=== PATIENT | male | born 1965 | race Caucasian/White ===

== ENCOUNTER → 2019-07-12 | Outpatient (CLI) | payer OTHER | END | disposition home or self-care (01) | LOC: CFH 07:57 | PROVIDERS: ATTEND Physician Assistant Medical | DX: M62.511 Muscle wasting and atrophy, not elsewhere classified, right shoulder (principal) ==

== ENCOUNTER 2020-05-13 15:31 | Emergency (ER) | payer SELFPAY ==
[~2020-05-13] VITALS: Ht 182.9 cm; Wt 98.7 kg
--- NOTE | 2020-05-13 15:38 | NUR ---
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
--- NOTE | 2020-05-13 15:50 | NUR ---
UNABLE TO GET A TEMP DUE TO PT VOMITING IN TRIAGE
[2020-05-13] MEDS ORDERED: KETOROLAC 30 MG/1 ML ONE (16:16)
[2020-05-13] MEDS ORDERED: ONDANSETRON ODT 4 MG PO ONE (16:30)
[2020-05-13] MEDS ORDERED: KETOROLAC 30 MG/1 ML IM ONE (16:30)
--- NOTE | 2020-05-13 16:32 | NUR ---
PIV INITIATED, PT MEDICATED PER NOV. LABS DRAWN AND SENT TO LAB. UA SAMPLE COLLECTED AND WALKED TO LAB PT TO BP, CONT PULSE OX AT THIS TIME, VSS. SIG OTHER AT BEDSIDE
--- NOTE | 2020-05-13 16:49 | NUR ---
PT TO IMAGING AT THIS TIME
[2020-05-13 16:50] LABS: MICROSCOPIC AUTO
[2020-05-13 16:51] LABS: BASOPHILS # (AUTO) 0.05 x10^3/uL (0-0.1); BASOPHILS % (AUTO) 1 % (0-1); EOSINOPHILS # (AUTO) 0.13 x10^3/uL (0-0.4); EOSINOPHILS % (AUTO) 2 % (1-7); LYMPHOCYTES # (AUTO) 1.81 x10^3/uL (1-3.4); LYMPHOCYTES % (AUTO) 20 % (22-44); MD NO; MEAN CORPUSCULAR HGB CONC 32.8 g/dL (33.2-36.2); MEAN CORPUSCULAR VOLUME 97.6 fL (81-97); MEAN PLATELET VOLUME 7.5 fL (7.4-10.4); MONOCYTES # (AUTO) 0.66 x10^3/uL (0.2-0.8); MONOCYTES % (AUTO) 7 % (2-9); NEUTROPHILS # (AUTO) 6.38 x10^3/uL (1.8-6.8); NEUTROPHILS % (AUTO) 71 % (42-75); PLATELET COUNT 242 x10^3/uL (130-400); RED BLOOD COUNT 4.76 x10^6/uL (4.38-5.82); RED CELL DISTRIBUTION WIDTH 13.5 % (9.4-14.8)
[2020-05-13 16:59] VITALS: BP 115/67
--- NOTE | 2020-05-13 17:01 | NUR ---
PT BACK FROM IMAGING, STATES MUCH PAIN RELEIF FROM TORADOL. VSS AT THIS TIME, AWAITING LABS
[2020-05-13 17:02] LABS: ANION GAP 4 mmol/L (5-15); CALCIUM 8.3 mg/dL (8.5-10.1); CHLORIDE 111 mmol/L (98-107); CREATININE 1.18 mg/dL (0.7-1.3)
== END 2020-05-13 17:39 | disposition home or self-care (01) ==
LOC: ED 16:49
DX: N13.2 Hydronephrosis with renal and ureteral calculous obstruction (principal); R10.32 Left lower quadrant pain; R11.0 Nausea; M54.9 Dorsalgia, unspecified
CPT/HCPCS: 36415; 74176; 80048; 81001; 85025; 96372; 99284; J1885

== ENCOUNTER 2020-05-13 21:31 | Emergency (ER) | payer SELFPAY ==
[~2020-05-13] VITALS: Ht 182.9 cm; Wt 97.7 kg
[2020-05-13] MEDS ORDERED: ONDANSETRON 2MG/ML, 2ML ONE (22:44)
[2020-05-13] MEDS ORDERED: KETOROLAC 30 MG/1 ML ONE (22:44)
[2020-05-13] MEDS ORDERED: SODIUM CHLORIDE FLUSH 10ML SYR IVF ONE (23:00)
[2020-05-13] MEDS ORDERED: SODIUM CHLORIDE 0.9% 1,000ML IVBOLUS ONE (23:00)
[2020-05-13] MEDS ORDERED: ONDANSETRON 2MG/ML, 2ML IVPush ONE (23:00)
[2020-05-13] MEDS ORDERED: KETOROLAC 30 MG/1 ML IVPush ONE (23:00)
--- NOTE | 2020-05-13 23:03 | NUR ---
pt reports coming in for kidney stone on left side. pt states he is having to pee regularly but unable to pass more than a small amount of urine. Pt reports being here earlier today and coming back due to pain. pt states stone is right at the end. bladder scan on pt reveiled 25 mls urine. pt medicated per nov. nad. vss. pt placed on spo2/bp monitoring. wctm.
--- NOTE | 2020-05-13 23:54 | NUR ---
pt reports that "the pain finally went away, it took awhile though." pt resting on martha, BLADIMIR, appears comfortable, WCTM. VSS
[2020-05-14 00:38] VITALS: BP 99/56
--- NOTE | 2020-05-14 00:39 | NUR ---
Patient given discharge instructions and they have confirmed that they understand the instructions. Patient ambulatory with steady gait. pt denies additional needs or questions at this time. no belongings left in room after DC.
== END 2020-05-14 00:41 | disposition home or self-care (01) ==
LOC: ED 23:36
DX: N13.2 Hydronephrosis with renal and ureteral calculous obstruction (principal); R11.2 Nausea with vomiting, unspecified; R33.9 Retention of urine, unspecified; R10.9 Unspecified abdominal pain
CPT/HCPCS: 96374; 96375; 99284; J1885; J2405; J7030